=== PATIENT | female | born 1985 | race Two or more races ===

== ENCOUNTER 2017-11-04 16:26 | Emergency (ER) | payer BC ==
[2017-11-04 16:34] VITALS: BP 117/75
--- NOTE | 2017-11-04 17:01 | UC ---
Head Injury HPI - HPI Summary HPI Summary: Patient states she collided with another player head on during a hockey game, then fell backward and hit her head on the ice. She states she has been feeling a little dizzy and nauseous since then and the light bothers her, she states she has neck pain and also started with headache around eye area and cheekbones along with post nasal drip. Hx of goiter/hypothyroidism whose medication was increased about 10 days ago. Other than that, she states she has been her 5 month old and waking up every 2 hrs. - History Of Current Complaint Chief Complaint: UCHeadInjury Stated Complaint: POSS CONCUSSION Time Seen by Provider: 11/04/17 16:49 Hx Obtained From: Patient Hx Last Menstrual Period: 2 weeks ago Onset/Duration: Sudden Onset, Lasting Hours Severity Currently: Mild Severity Initially: Moderate Pain Intensity: 4 Character: Pressure Aggravating Factor(s): Unknown Alleviating Factor(s): Unknown Associated Signs And Symptoms: Positive: Negative, Neck Pain, Nausea - Risk Factors SDH Risk Factor: Negative - Allergies/Home Medications Allergies/Adverse Reactions: Allergies Allergy/AdvReac Type Severity Reaction Status Date / Time minocyline Allergy Severe hands and Uncoded 11/04/17 16:35 feet swell PMH/Surg Hx/FS Hx/Imm Hx Previously Healthy: Yes Endocrine History: Hypothyroidism Other History Of: Negative For: Anticoagulant Therapy - Surgical History Surgical History: None Surgery Procedure, Year, and Place: wisdom teeth; oral benign tumor removed - Family History Known Family History: Positive: None - Social History Alcohol Use: Weekly Substance Use Type: None Smoking Status (MU): Never Smoked Tobacco Review of Systems Constitutional: Negative Eyes: Photophobia Gastrointestinal: Nausea Neurological: Other - dizziness All Other Systems Reviewed And Are Negative: Yes Physical Exam Triage Information Reviewed: Yes Appearance: Well-Appearing, No Pain Distress, Well-Nourished Vital Signs: Initial Vital Signs Temp 97.9 F 11/04/17 16:30 Pulse 55 11/04/17 16:30 Resp 18 11/04/17 16:30 BP 117/75 11/04/17 16:30 Pulse Ox 100 11/04/17 16:30 Vital Signs Reviewed: Yes Eyes: Positive: Conjunctiva Clear ENT: Positive: Normal ENT inspection, Hearing grossly normal, Pharynx normal, TMs normal, Uvula midline Dental Exam: Normal Neck: Positive: Supple, Nontender, No Lymphadenopathy Respiratory: Positive: Chest non-tender, Lungs clear, Normal breath sounds, No respiratory distress Cardiovascular: Positive: RRR, No Murmur, Pulses Normal, Brisk Capillary Refill Abdomen Description: Positive: Nontender, No Organomegaly, Soft Bowel Sounds: Positive: Absent Neurological: Positive: Alert, Muscle Tone Normal, Other: - nistagmus on left, not suppressed by fixation. Strength preserved, gait normal. sensory intact, romberg negative, cerebellar tests negative Skin Exam: Normal Head Injury Course/Dx - Course Course Of Treatment: non contrast CT of the brain negative. Instructed patient to follow up with PCP or return if symptoms worsen or if she develops nausea, vomiting, dizziness, visual disturbances, or gait disturbance. - Differential Dx/Diagnosis Provider Diagnoses: concussion Discharge - Sign-Out/Discharge Documenting (check all that apply): Discharge - Discharge Plan Condition: Stable Disposition: HOME Patient Education Materials: Concussion (ED), Post Concussion Syndrome (ED) Referrals: Karlee Quinones NP [Primary Care Provider] - - Billing Disposition and Condition Condition: STABLE Disposition: HOME
--- NOTE | 2017-11-04 18:10 | RAD ---
Indication: Concussion. Nausea. Nystagmus Comparison: July 21, 2011 CT Technique: Noncontrast CT vertex of skull through foramen magnum. Report: Beam hardening artifact from a RIGHT ear ringing degrades image quality. The sulci, ventricles, and basal cisterns are normal for age. Moon matter white matter differentiation is preserved without evidence for edema. No intra or extra axial hemorrhage is detected. Unremarkable visualized orbital contents. Negative for calvarial or skull base fracture. Negative for scalp hematoma. The visualized paranasal sinuses and mastoid air spaces are clear. IMPRESSION: No CT evidence for traumatic brain injury. Negative exam.
== END 2017-11-04 18:51 | disposition home or self-care (01) ==
LOC: UCEAST 16:26
DX: S06.0X9A Concussion with loss of consciousness of unspecified duration, initial encounter (principal); W03.XXXA Other fall on same level due to collision with another person, initial encounter; Y93.22 Activity, ice hockey; Y92.330 Ice skating rink (indoor) (outdoor) as the place of occurrence of the external cause; Z32.02 Encounter for pregnancy test, result negative; E03.9 Hypothyroidism, unspecified; Z88.1 Allergy status to other antibiotic agents
CPT/HCPCS: 70450; 84702; 99211; G0463

== ENCOUNTER 2023-11-18 05:56 | Observation (INO) ==
[~2023-11-18 05:56] MED LIST: NS 0.45% 1000 ml BAG 1,000 ML IV SCH; Naloxone 0.4 mg VIAL 0.4 mg/ml 1 ml VIAL IV PRN
[2023-11-18] MEDS: Buffered Lidocaine 1% SYRIN 1 ml INTRADERM ONE (06:23)
[2023-11-18] MEDS: Acetaminophen IV 1 GM/100ML 1,000 MG/100 ML BAG IV ONE (06:23)
[2023-11-18] MEDS ORDERED: Scopolamine 1 mg/72hr PATCH ONE (06:25)
[2023-11-18] MEDS: Lactated Ringers 1000 ml BAG 1,000 ML IV SCH (06:38)
[2023-11-18] MEDS: Scopolamine 1 mg/72hr PATCH TRANSDERM ONE (06:38)
[2023-11-18] MEDS ORDERED: Propofol 10 MG/ML 20 ML BTL ONE (07:11)
[2023-11-18 07:14] LABS: Rapid COVID-19 Molecular Undetected (Undetected)
[2023-11-18] MEDS ORDERED: Rocuronium 50 mg VIAL 10 mg/ml 5 ml VIAL (50 mg) ONE (07:14)
[2023-11-18] MEDS ORDERED: fentaNYL 100 mcg/2 ml 50 MCG/ML VIAL ONE ×2 (07:17→12:01)
[2023-11-18] MEDS ORDERED: Lidocaine 2% PF 5 ML VIAL ONE (07:17)
[2023-11-18] MEDS ORDERED: Midazolam 2 mg/2 ml VIAL 1 mg/ml 2 ml VIAL (2 mg) ONE (07:22)
[2023-11-18] MEDS ORDERED: Lidocaine 1% w EPI 1:200,000 SDV 30 ML VIAL ONE (07:28)
[2023-11-18] MEDS ORDERED: Dexamethasone IV 4 MG/ML VIAL 1 ml VIAL ONE (08:59)
[2023-11-18] MEDS ORDERED: Ondansetron 4 mg VIAL 2 MG/ML 2 ml VIAL ONE ×2 (08:59→12:01)
[2023-11-18] MEDS ORDERED: HYDROmorphone 0.5 MG/0.5 ML SYRINGE ONE ×2 (09:20→09:32)
[2023-11-18] MEDS ORDERED: Ondansetron 4 mg VIAL 2 MG/ML 2 ml VIAL IV PRN (11:46)
[2023-11-18] MEDS: fentaNYL 100 mcg/2 ml 50 MCG/ML VIAL IV PRN (12:03)
[2023-11-18] MEDS: Ondansetron 4 mg VIAL 2 MG/ML 2 ml VIAL IV PRN (12:03)
[2023-11-18] MEDS ORDERED: Metoclopramide 5 MG/ML VIAL (10 mg) ONE (12:12)
[2023-11-18] MEDS: Metoclopramide 5 MG/ML VIAL (10 mg) IV PRN (12:14)
[2023-11-18] MEDS: Calcium (OSCAL) 500 mg TAB PO SCH (14:32)
[2023-11-19 14:06] VITALS: BP 130/65
== END 2023-11-19 14:37 | disposition home or self-care (01) ==
LOC: SSU 05:56 → OR 05:56 → SUATTDRO 13:44
PROVIDERS: ADMIT Student in an Organized Health Care Education/Training Program; ATTEND Student in an Organized Health Care Education/Training Program